=== PATIENT | male | born 1940 | race Caucasian/White ===

== ENCOUNTER 2022-02-02 21:31 | Emergency (ER) | payer MEDICARE, OTHER ==
[~2022-02-02] VITALS: Ht 170.2 cm; Wt 88.5 kg
--- NOTE | 2022-02-02 21:40 | NUR ---
SUSANNA FROM HOME C/O CALLING 911 DUE TO PT BEING LETHARGIC, PER EMS PT DRANK UNKOWN AMOUNT OF WHISKEY. BS 112 CREDIT REPORTER. TOLERATING R/A WELL WITH NO SOB. CONNECTED PT TO POX AND MONITOR. SAFETY MEASURES IN PLACE.
[2022-02-02] MEDS ORDERED: IV NS 0.9% 1,000 ML BAG IV ONE (22:00)
--- NOTE | 2022-02-02 22:31 | NUR ---
WORKFORCE PLANNER AT PT'S BEDSIDE
[2022-02-02] MEDS ORDERED: IV NS 0.9% 500 ML BAG IV ONE (23:00)
[2022-02-02 23:09] LABS: BASOPHILS % (AUTO) 0.3 % (0.0-2.0); EOSINOPHILS % (AUTO) 2.9 % (0.0-6.0); HEMATOCRIT 33 % (39-51); LYMPHOCYTES # (AUTO) 1.7 K/uL (0.8-4.8); LYMPHOCYTES % (AUTO) 26.8 % (20.0-44.0); MEAN CORPUSCULAR HGB CONC 34 g/dl (31.0-36.0); MEAN CORPUSCULAR VOLUME 97 fL (80-96); MONOCYTES # (AUTO) 0.6 K/uL (0.1-1.30); MONOCYTES % (AUTO) 9.5 % (2.0-12.0); NEUTROPHILS # (AUTO) 3.9 K/uL (1.8-8.9); NEUTROPHILS % (AUTO) 60.5 % (43.0-81.0); PLATELET COUNT (AUTO) 156 K/uL (150-450); RED BLOOD CELL COUNT(AUTO) 3.37 MIL/uL (4.5-6.0); WHITE BLOOD COUNT (AUTO) 6.5 K/uL (4.3-11.0)
[2022-02-02 23:14] LABS: CALCIUM, SERUM 7.5 mg/dL (8.5-10.1); CARBON DIOXIDE 23 mmol/L (21-32); CHLORIDE 106 mmol/L (98-107); CREATININE 2.3 mg/dL (0.6-1.3); GLUCOSE 113 mg/dL (74-106); POTASSIUM 4.1 mmol/L (3.5-5.1); SODIUM SERUM 138 mmol/L (136-145); UREA NITROGEN, BLOOD 27 mg/dL (7-18)
[2022-02-02 23:29] LABS: ALANINE AMINOTRANSFERASE 13 U/L (12-78); ALBUMIN 3.2 g/dL (3.4-5.0); ALCOHOL, BLOOD 121 mg/dL (0-0); ALKALINE PHOSPHATASE 62 U/L (46-116); ASPARTATE AMINOTRANSFERASE 17 U/L (15-37); BILIRUBIN,DIRECT 0.1 mg/dL (0.0-0.2); BILIRUBIN,TOTAL 0.2 mg/dL (0.2-1.0)
[2022-02-02 23:33] LABS: ACETAMINOPHEN 0 ug/ml (10-30)
--- NOTE | 2022-02-03 00:03 | NUR ---
SON (LORI) LEFT PHONE NUMBER TO CONTACT WHEN DISCHARGED. [phone].
[2022-02-03 00:37] VITALS: BP 102/60
--- NOTE | 2022-02-03 00:37 | NUR ---
Patient discharged to home in stable condition. Written and verbal after care instructions given. Patient verbalizes understanding of instruction.
== END 2022-02-03 00:37 | disposition home or self-care (01) ==
LOC: ER 21:33
DX: F10.129 Alcohol abuse with intoxication, unspecified (principal); I10 Essential (primary) hypertension; Y90.6 Blood alcohol level of 120-199 mg/100 ml
CPT/HCPCS: 36415; 80048; 80076; 80143; 80320; 85025; 96360; 99283; J7030; J7040; G0480

== ENCOUNTER 2022-03-28 07:16 | Inpatient (IN) | payer MEDICARE, OTHER ==
[~2022-03-28] VITALS: Ht 170.2 cm; Wt 77.1 kg
--- NOTE | 2022-03-28 07:49 | NUR ---
TECH AT BEDSIDE FOR EKG
[2022-03-28] MEDS ORDERED: IPRATROPIUM NEB FS 0.5 MG/2.5 ML AMPUL.NEB ONE (07:56)
[2022-03-28] MEDS ORDERED: ALBUTEROL FS 2.5 MG/3 ML VIAL.NEB ONE (07:56)
[2022-03-28] MEDS ORDERED: ALBUTEROL FS 2.5 MG/3 ML VIAL.NEB NEB ONE (08:00)
[2022-03-28] MEDS ORDERED: IPRATROPIUM NEB FS 0.5 MG/2.5 ML AMPUL.NEB NEB ONE (08:00)
[2022-03-28 08:14] LABS: BASOPHILS # (AUTO) 0.1 K/uL (0.0-0.2); BASOPHILS % (AUTO) 0.5 % (0.0-2.0); EOSINOPHILS % (AUTO) 2.3 % (0.0-6.0); HEMATOCRIT 35 % (39-51); HEMOGLOBIN 11.4 g/dL (13.5-17.5); LYMPHOCYTES # (AUTO) 2.5 K/uL (0.8-4.8); LYMPHOCYTES % (AUTO) 23.4 % (20.0-44.0); MEAN CORPUSCULAR HGB CONC 33 g/dl (31.0-36.0); MEAN CORPUSCULAR VOLUME 100 fL (80-96); MONOCYTES # (AUTO) 0.6 K/uL (0.1-1.30); MONOCYTES % (AUTO) 5.8 % (2.0-12.0); NEUTROPHILS # (AUTO) 7.2 K/uL (1.8-8.9); PLATELET COUNT (AUTO) 187 K/uL (150-450); RED BLOOD CELL COUNT(AUTO) 3.47 MIL/uL (4.5-6.0); WHITE BLOOD COUNT (AUTO) 10.6 K/uL (4.3-11.0)
--- NOTE | 2022-03-28 08:15 | NUR ---
ANASTACIA 102 FROM HOME FOR AMS. LWK LAST NIGHT AROUND 2200 APPEARS INTOXICATED WITH ALCOHOL ON TRIAGE. THE PATIENT IS ALERT AND ORIENTED X2. NOTED TO HAVE OXYGEN SATURATION LEVEL OF 88 % IN ROOM AIR. THE PATIENT IS PLACED ON OXYGEN AT 5L/MIN VIA SIMPLE MASK AND SATURATION IMPROVED TO 97%. WILL CONTINUE TO MONITOR THE PATIENT.
[2022-03-28 08:23] LABS: ALCOHOL, BLOOD 161 mg/dL (0-0)
[2022-03-28 08:29] LABS: ALANINE AMINOTRANSFERASE 27 U/L (12-78); ALBUMIN 3.4 g/dL (3.4-5.0); ALKALINE PHOSPHATASE 84 U/L (46-116); ASPARTATE AMINOTRANSFERASE 21 U/L (15-37); BILIRUBIN,DIRECT 0.1 mg/dL (0.0-0.2); BILIRUBIN,TOTAL 0.5 mg/dL (0.2-1.0); CALCIUM, SERUM 8.5 mg/dL (8.5-10.1); CARBON DIOXIDE 24 mmol/L (21-32); CHLORIDE 104 mmol/L (98-107); CREATININE 1.4 mg/dL (0.6-1.3); GLUCOSE 93 mg/dL (74-106); POTASSIUM 3.7 mmol/L (3.5-5.1); SODIUM SERUM 138 mmol/L (136-145); TOTAL PROTEIN, SERUM 7.5 g/dL (6.4-8.2); UREA NITROGEN, BLOOD 20 mg/dL (7-18)
--- NOTE | 2022-03-28 08:55 | NUR ---
SS Note: WALTER met with pt. and his at bedside. The pt. is a 81 year old male who was brought in by his , Fannie [phone] who he is from. WALTER met with pt. and his at bedside. The pt. is alert & oriented x 1 and possibly intoxicated with alcohol.The pt. is a poor historian. SW athered collateral information from . Per , the pt. has not been eating well and he drinks daily. SW provided addiction resources. Fannie stated that she brought th pt. in to the ED because the pt. was residing with his daughter in her home. However, per , the pt. has been requiring additional car and the daughter cannot care for him as she works. Per , the pt. went to "get a burger and got lost ont he way back home". SW asked if the pt. has Hx. of Dementia and she stated he has not been diagnosed yet. is stating that she would like possible cargiving for pt. SW aked about SNF placement and she stated that she can care for pt. as she lives with her son. WALTER educated her about IHSS and provided number for her to initiate services or get paid herself to care for pt. Fannie expressed understanding. WALTER provided her with senior resources including DME, MEALS ON WHEELS, LIFE ALERT etc. and Fannie accepted resources and thanked WALTER. WALTER will be available as needed. Senior resources and addiction reosurces provided include: ABUSE PREVENTION: ELDER ABUSE HOTLINE (18/03) ADULT PROTECTIVE SERVICES HOTLINE LONG-TERM CARE [facility] - sfv Region AREA ON AGING (HOTLINE) ADULT DAY HEALTH CARE CARE CENTERS: Private pay or Medi-corin funded adult day care [place] Adult Day Health Care [facility] , [facility] , [facility] Adult Care Center , [facility] Adult Day Health Care , [facility] Adult Day Health Care , [facility] Adult Daycare Center , Golden [facility] Generation Center , [place] Michelle [facility] Adult Center , [place] ALZHEIMER'S DISEASE/DEMENTIA: Alzheimer's Association Helpline [facility] Chapter www.alz.org/[facility] Department of Aging www.lacity.org Family Caregiver [place] www.caregiver.org [place] Caregiver Resources Center/Family Support www.losangelesscr.org CANCER RESOURCES: Citizen Of [place] Cancer Society www.cancer.org Cancer Support Community www.CancerSupportVvsb.org: CancerCare www.cancercare.org [facility] Cancer Support Center www.[facility].org [facility] HEALTH ASSOCIATIONS: AARP www.aarp.org ALS Association (ask for Jany) www.als.org Citizen Of [place] Diabetes Association www.diabetes.org [place] Heart Association www.heart.org [place] Lung Association www.lungusa.org Citizen [place] Parkinson Disease Association www.apdaparkinson.org Citizen [place] Ignacio , www.redcross.org Arthritis Foundation www.arthritis.org Crohn's & Colitis Foundation of Citizen Of [place] www.ccfa.org/chapters/darian National Multiple Sclerosis Society www.nationalmssociety.org Myasthenia Gravis Foundation www.myasthenia-ca.org National Stroke Association www.stroke.org CONSERVATORSHIP & GUARDIANSHIP: AARP Joselin [place] Legal Services Center for Health Care Rights Eldercare Information and Referral Merchandise Adjustment Clerk [facility]: [facility] Bar Referral Service [facility] Legal Services Office of the Public Guardian [place] EYESIGHT DISORDER RESOURCES: Citizen Of [place] Macular Degeneration Foundation [facility] www.[facility].org GRIEF AND BEREAVEMENT RESOURCES: The [place] , [facility] THE HOPE Connection , [facility] Bereavement Center , [place] HEARING DISORDER RESOURCES: [place] Telephone Access Program Deaf and Disabled Telecommunications Program www.ddtp.[facility].ca.gov HearRx Hearing Centers ([place]) Better Hearing Systems , [place] GLAD ([facility] Agency on Deafness) V/ TTY; Clinical Editor , [facility] Hearing [facility] -low income hearing aid assistance www.hca [facility] hospitalfoundation.org [place] [facility] , Torin HELP AT HOME - CAREGIVER SUPPORT: In Home Support Services (Must have Medi-Corin to be eligible) *Ask for a list of agencies that provide services to assist with care in the home. Local Senior Centers also have listings of care providers. HOME SAFETY MODIFICATIONS AND EQUIPMENT: Senior centers have additional referrals. [place] Housing and Community Investment Dept. Handyworker Program (low income) or Visit http://hcidla.[facility].org/tig-ijiipe-wt for more information National Seating and Mobility and/or ; Forever Active www.foreverAnimal Kingdommed.1calendar Stay Home Safe www.Stayhomesafe.com LIFE ALERT RESPONSE SYSTEM: Medifacts International Services 897-560-5961 www. Bellstrike Life Alert 766-206-0069 www.KIWATCH Life Station 961-687-9720 www.Kastation.1calendar Safe Return 006-326-5038 www.alz.or/safereturn Cell Phones for Seniors www.Werdsmith MEALS AND FOOD PROGRAMS: [place] Meals on Wheels [phone] [place] Meals on Wheels [phone] [facility] [phone] [place] to the Homebound [phone] Scissors to the Homebound [phone] [facility] to the Homebound [phone] [facility] to the Homebound [phone] [facility] Center[facility] [phone] [facility] [phone] ONE Generation [phone] [facility] [phone] [facility] [phone] Meals on Wheels [phone] For all ages: $6.85/ meal w side. Delivered M-F from 10 am-1pm. Application and payment is done over the phone. Frozen meals available for weekends. Emergency Food Coalition [phone] [facility] Biomedical Repair Technician [phone] [facility] [phone] Community Health Systems- Brown bag lunches [phone] [facility] [phone] MEAL/GROCERY DELIVERY PROGRAMS: Ashley's Senior Gourmet Meals [phone]- [facility] [phone]- [facility] Magic Kitchen [phone] Mom's Meals [phone] (ask Martines for Discount Select grocery stores may provide delivery. MEDICAL INSURANCE SUPPORT SERVICES: Center for Health Care Rights [phone] Health Insurance Counseling/Advocacy Programs (HICAP)-Must have Medicare. Offers counseling for Medi-Corin eligibility [phone] [facility] Public Biomedical Repair Technician [phone] www.[facility].ca.gov Medicare [phone] www.socialsecurity.org Social Security [phone] SENIOR ACTIVITY PROGRAMS: *Contact a local senior center, adult school, recreation facility or community [facility] for education, fitness, recreation, and social programs. Aquatic Therapy and Adapted Exercise programs through [facility] [phone] Encore at [facility] [phone] www.[facility]/encore U- Senior Friends [phone] [place] Senior Programs [phone] www.oasisnet.org Suddenly 65 www.SEVENROOMS.1calendar SENIOR CENTERS: [facility] [phone] [facility] [phone] [facility] [phone] [facility] [phone] [facility] [phone] [facility] [phone] [facility] [phone] [facility] [phone] One Generation, [facility] [phone] [facility] [phone] [facility] [phone] [facility] [phone] [facility] [phone] TRANSPORTATION: Local [facility] Centers may have applications for transportation programs and additional resources. ACCESS Services [phone] Transportation for seniors and disabled persons 7 days a week requiring 254 hr. advance reservation. Must apply and register for program razia eligible. CITY RIDE 404-661-3325 or [phone] Transportation for seniors and persons with ADA card/metro disabled card in the [facility]. M-F only. Must register for services. ONE GENERATION [phone] Serves 65 years + in conjunction with Loan [employer]icing [employer] ride program. Must be registered with both programs. A to B Transport [phone] Provides wheelchair/gurney van service. Adult Medical Transport [phone] Accepts [facility] with prior authorization. Care Van [phone] Provides wheelchair Transport. [facility] Wide Transportation [phone] Provides gurney service Gentle Care [phone] Gurney Transport. All Town Transportation [phone] wheelchair & gurney transport [facility] Transportation [phone] wheelchair & gurney transport [place] Non-Emergency Transport [phone] wheelchair & gurney transport [facility] Living [place] [phone] Short Term Transportation primarily for adults with disabilities on social security income. Nominal fee may apply and a reservation is required. City Cab [phone] or [phone] Greetz [phone] [place] [address] Referral Services -[phone] For additional programs & services VETERANS RESOURCES: Submissions for Aid and Attendance should be done directly to [facility] VA office locatd at : [address] [phone] National Caregiver Support Line [phone] [facility] Field Office [phone] [place] Department of Santa Affairs [phone] Pension Information [phone] ADDICTION RESOURCES For Drugs and Alcohol [facility] sober living Referrals For Rehabilitation once sober Address:[address] [place] [address] [facility] Rehabilitation Program [address] [place] [address] Detox/residential [facility] Substance Abuse Helpline ([facility]) Outpatient, residential treatment, recovery support for youth/adults Action Family Counseling www.actionfamilycounsArtisan Pharma.1calendar [facility] Teen programs for drug/alcohol education and support Juan José Harper [employer]. Program for adults, sliding scale provides support and education citizenmade www.Optima Neuroscience.org [place]; Detox/residential treatment programs; transition to sober living Cri-Help www.cri-help.org [place]; Outpatient and residential treatment programs; transition to sober living [facility] TEL: [phone] I-ADARP Inter Agency Drug Abuse Recovery Tony Martinez; Outpatient education and supportive programs for teens and adults [place] [facility] www.oasiswomensrecmercy hospitaly.org [place]; Residential treatment and work program for females only Neal [place] www.[facility].Storm Exchange [place]: Outpatient/residential treatment program for teens and young adults [facility] www.[facility].org Tarza Detox, inpatient, outpatient for adults and youth [facility], [facility]. Clark; Outpatient programs and referrals to community residential programs. Alcoholics Anonymous -SFV information and meeting and scheduleswww.aa-intergroup.org Yehuda https://al-anon.org/ [place] support groups for family of alcoholics. Marijuana Anonymous www.madistrict6.org -SFV listing of meetings Narcotics Anonymous www.na.org SOBER LIVING RESOURCES The Sober Living Network www.soberhousing.net A non-profit agency that provides resources to recovery and sober living homes throughout [place], [place], [facility] Men's Sober Living Homes: A Work in ProgressMaximino [facility] Payton Harper Recovery Advocates, [place] [facility] Hospital[facility] Women's Sober Living Homes: [facility] [phone] My [place], [place] Leon [facility] Brussels[facility] Coed Sober Living Homes: [facility] [place] Counseling--Outpatient [facility] [address] [place] Pablo brittanie [facility] [place] [address] (Specializes in in-depth psychotherapy for emotional distress: anxiety, depression, interpersonal conflicts, life transitions, childhood abuse) Community [facility]ance [facility] [address] [place] [address] (Assist with solving problem marital difficulties, separation & divorce, aging parents, & grief, chronic & terminal illness) Family [facility]ing Center [address] [place] [address] (Deal with loss & grief, anxiety, marital difficulties) Homebound/Mental Health Services [address] [facility], [address] [place] [address] (Provide in-home mental services to people who are incapable of leaving their homes) Organization for Needs of the Elderly Senior Service/Resource Center [address] [place] [address] [facility] [address] [place] [address] Mental Health Services Mary Newman [address] [place] [address] Services: Outpatient therapy for children, teens, young adults, adults, older adults, and families; Psychiatric services, medication support Psychiatric Outpatient Services [place] [facility] Partial Hospitalization and Intensive Outpatient Program (Managed Care and [place] Only)[address] [facility]. [facility] [phone] [facility] Partial Hospitalization and Outpatient [id number] [facility]. [address] [place], [place] [phone] [facility] Health [place] [id number] [address] [place] Michelle[place], [place] [phone] [facility] Tony Martinez Partial Hospitalization and Outpatient [id number] [place] [phone] Crisis and Hotline Telephone Numbers 24-Hour service unless stated [place] Crisis Hotlines: [facility] Mental Health/Crisis Line........934.774.3459 Suicide Prevention Center (24 Hours).......756.877.2196 Suicide Prevention Crisis Center.......[phone] (24 Hours) Assaults Against Women Hotline.........205.393.2494 (24 Hours -- [facility]) Women and Children Crisis Prison...........[phone] (24 Hours) Child Abuse Hotline............297.191.7915 [facility] of Childrens Services Rape Treatment Center (24 Hours)..........[phone] Alcoholics Anonymous (24 Hours)..........[phone] Cocaine Anonymous (24 Hours)............[phone] Narcotics Anonymous (24 Hours)..........[phone] [address] [facility] [address], [place] [address]
[2022-03-28 09:03] LABS: SERUM AMMONIA 19 umol/L (11-32)
--- NOTE | 2022-03-28 09:30 | NUR ---
THE PATIENT IS OXYGEN AT 2L/MIN VIA NASAL CANNULA. SATURATIO LEVEL IS AT 97%.
[2022-03-28] MEDS ORDERED: ICOS1CAP PO (09:37)
[2022-03-28] MEDS ORDERED: ASPI-1420 PO (09:37)
[2022-03-28] MEDS ORDERED: ESOM40CA52 PO (09:37)
[2022-03-28] MEDS ORDERED: ATEN25TA PO (09:37)
[2022-03-28] MEDS ORDERED: FERR325T24 PO (09:37)
[2022-03-28] MEDS ORDERED: CALC500T52 PO (09:37)
[2022-03-28] MEDS ORDERED: FOLI0.4T6 PO (09:37)
[2022-03-28] MEDS ORDERED: THIA100T88 PO (09:37)
[2022-03-28] MEDS ORDERED: TEMA15CA PO (09:37)
[2022-03-28] MEDS ORDERED: PYRI-7 PO (09:37)
[2022-03-28] MEDS ORDERED: MEGE40TA5 PO (09:37)
[2022-03-28] MEDS ORDERED: LIPA1CAP36 PO (09:37)
[2022-03-28] MEDS ORDERED: GABA-532 PO (09:37)
[2022-03-28] MEDS ORDERED: ROSU20TA32 PO (09:37)
[2022-03-28] MEDS ORDERED: LORA-258 PO (09:37)
[2022-03-28] MEDS ORDERED: SERT100T12 PO (09:37)
--- NOTE | 2022-03-28 09:40 | NUR ---
DR ABDUL AT BEDSIDE W/ PT AND .
--- NOTE | 2022-03-28 09:45 | NUR ---
COVID SWAB COLLECTED AND SENT TO LAB.
[2022-03-28 10:12] VITALS: BP 152/97
--- NOTE | 2022-03-28 11:16 | NUR ---
[facility] CALLED DIRECTOR OF FRONT OFFICE PAGED.
--- NOTE | 2022-03-28 12:08 | NUR ---
GOT BED 310-1 PPU
--- NOTE | 2022-03-28 12:23 | NUR ---
REPORT GIVEN TO NURSE SANCHEZ FOR FLORA
--- NOTE | 2022-03-28 12:48 | NUR ---
THE PATIENT IS TAKEN TO ROOM 310-1 IN STABLE CONDITION AND PER POLICY.
[2022-03-28] MEDS ORDERED: ACETAMINOPHEN 325 MG TABLET PO PRN (14:00)
[2022-03-28] MEDS ORDERED: CHLORDIAZEPOXIDE HCL 25 MG CAPSULE PO SCH (14:00)
[2022-03-28] MEDS ORDERED: ONDANSETRON HCL/PF 4 MG/2 ML VIAL IVP PRN (14:00)
[2022-03-28] MEDS ORDERED: Z GUARD REMEDY 4 OZ OINT TP PRN (14:00)
[2022-03-28] MEDS ORDERED: MAG HYDROX/AL HYDROX/SIMETH 30 ML UDC PO PRN (14:00)
[2022-03-28] MEDS ORDERED: LORAZEPAM INJ 2 MG/ML VIAL IV PRN (14:00)
[2022-03-28] MEDS ORDERED: IV 1/2NS 1000 ML 1,000 ML IV PRN (14:00)
[2022-03-28] MEDS ORDERED: THIAMINE HCL 100 MG TABLET PO SCH (14:00)
[2022-03-28] MEDS ORDERED: CALCIUM CARBONATE (1250) 500 MG TABLET PO SCH (17:00)
[2022-03-28] MEDS ORDERED: MEGESTROL ACETATE 40 MG TABLET PO SCH (17:00)
[2022-03-28] MEDS ORDERED: Medication Not On Formulary EA (Icosapent Ethyl (Vascepa) 1 GM) PO SCH (17:00)
[2022-03-28] MEDS ORDERED: LIPASE/PROTEASE/AMYLASE 1 EACH CAPSULE.DR PO SCH (18:00)
[2022-03-28] MEDS ORDERED: HEPARIN SODIUM, PORCINE 5000 UNITS/1 ML VIAL SQ SCH (21:00)
[2022-03-29] MEDS ORDERED: PANTOPRAZOLE 40 MG TABLET.DR PO SCH (07:30)
[2022-03-29] MEDS ORDERED: ATENOLOL 25 MG TABLET PO SCH (09:00)
[2022-03-29] MEDS ORDERED: ASPIRIN EC 81 MG TABLET.DR PO SCH (09:00)
[2022-03-29] MEDS ORDERED: PYRIDOXINE HCL 50 MG TABLET PO SCH (09:00)
[2022-03-29] MEDS ORDERED: FERROUS SULFATE (325 MG) 325 MG/TAB TABLET PO SCH (09:00)
[2022-03-29] MEDS ORDERED: FOLIC ACID 1 MG TABLET PO SCH (09:00)
[2022-03-29] MEDS ORDERED: ATORVASTATIN 40 MG TABLET PO SCH (09:00)
[2022-03-29] MEDS ORDERED: SERTRALINE HCL 50 MG TABLET PO SCH (09:00)
== END 2022-03-28 15:15 | disposition left against medical advice (07) | DRG 682 ==
LOC: ER 07:27 → TELE 12:30
PROVIDERS: ADMIT Nurse Practitioner Family; ATTEND Nurse Practitioner Family
DX: N17.0 Acute kidney failure with tubular necrosis (principal); G92.8 Other toxic encephalopathy; J96.01 Acute respiratory failure with hypoxia; F10.239 Alcohol dependence with withdrawal, unspecified; I12.9 Hypertensive chronic kidney disease with stage 1 through stage 4 chronic kidney disease, or unspecified chronic kidney disease; N18.9 Chronic kidney disease, unspecified; Y90.6 Blood alcohol level of 120-199 mg/100 ml; D53.9 Nutritional anemia, unspecified; Z20.822 Contact with and (suspected) exposure to COVID-19; F10.229 Alcohol dependence with intoxication, unspecified
CPT/HCPCS: 36415; 70450-TC; 71045-TC; 80048-TC; 80076-TC; 82140-TC; 84484-TC; 85025-TC; C9803; G0378; G0480

== ENCOUNTER 2023-08-26 12:39 | Inpatient (IN) | payer MEDICARE, OTHER ==
[~2023-08-26] VITALS: Ht 170.2 cm; Wt 70.8 kg
[~2023-08-26 12:39] MED LIST: ASPI-1420 PO; ATEN25TA PO; CALC500T52 PO; ESOM40CA52 PO; FERR325T24 PO; FOLI0.4T6 PO; GABA-532 PO; ICOS1CAP PO; LIPA1CAP36 PO; LORA-258 PO; MEGE40TA5 PO; PYRI-7 PO; ROSU20TA32 PO; SERT100T12 PO; TEMA15CA PO; THIA100T88 PO
[2023-08-26 14:29] LABS: BASOPHILS % (AUTO) 0.1 % (0.0-2.0); EOSINOPHILS # (AUTO) 0.1 K/uL (0.0-0.7); EOSINOPHILS % (AUTO) 0.9 % (0.0-6.0); HEMATOCRIT 29 % (39-51); HEMOGLOBIN 9.7 g/dL (13.5-17.5); LYMPHOCYTES # (AUTO) 0.8 K/uL (0.8-4.8); LYMPHOCYTES % (AUTO) 11.7 % (20.0-44.0); MEAN CORPUSCULAR HEMOGLOBIN 34 PG (26.0-33.0); MEAN CORPUSCULAR HGB CONC 34 g/dl (31.0-36.0); MEAN CORPUSCULAR VOLUME 100 fL (80-96); MONOCYTES # (AUTO) 0.3 K/uL (0.1-1.30); NEUTROPHILS # (AUTO) 5.9 K/uL (1.8-8.9); NEUTROPHILS % (AUTO) 83.3 % (43.0-81.0); PLATELET COUNT (AUTO) 118 K/uL (150-450); RED BLOOD CELL COUNT(AUTO) 2.85 MIL/uL (4.5-6.0); RED CELL DISTRIBUTION WIDTH 14.1 % (11.5-15.0); WHITE BLOOD COUNT (AUTO) 7.1 K/uL (4.3-11.0)
[2023-08-26 14:38] LABS: CALCIUM, SERUM 8.7 mg/dL (8.5-10.1); CARBON DIOXIDE 26 mmol/L (21-32); CHLORIDE 96 mmol/L (98-107); CREATININE 1.1 mg/dL (0.6-1.3); GLUCOSE 89 mg/dL (74-106); POTASSIUM 3.9 mmol/L (3.5-5.1); SODIUM SERUM 132 mmol/L (136-145); UREA NITROGEN, BLOOD 24 mg/dL (7-18)
[2023-08-26 14:44] LABS: ALANINE AMINOTRANSFERASE 40 U/L (12-78); ALBUMIN 2.9 g/dL (3.4-5.0); ALKALINE PHOSPHATASE 81 U/L (46-116); ASPARTATE AMINOTRANSFERASE 42 U/L (15-37); BILIRUBIN,DIRECT 0.3 mg/dL (0.0-0.2); TOTAL PROTEIN, SERUM 6.5 g/dL (6.4-8.2)
[2023-08-26] MEDS ORDERED: IV NS 0.9% 1,000 ML BAG IV ONE (15:30)
[2023-08-26 15:33] LABS: ALCOHOL, BLOOD < 3 mg/dL (0-10); MAGNESIUM 1.9 mg/dL (1.8-2.4)
[2023-08-26] MEDS ORDERED: IV NS 0.9% 250 ML IV ONE (15:50)
[2023-08-26] MEDS ORDERED: CT SWABBABLE VALVE TRANS SET 1 EA INFUS.SET MC ONE (15:50)
[2023-08-26] MEDS ORDERED: IOHEXOL-300 100 ML VIAL IV ONE (15:50)
[2023-08-26] MEDS ORDERED: LORAZEPAM 1 MG TABLET PO ONE (17:00)
[2023-08-26] MEDS ORDERED: MORPHINE SULFATE INJ 2 MG/ML DISP.SYRIN IV ONE (17:00)
[2023-08-26] MEDS ORDERED: LORAZEPAM 1 MG TABLET ONE (17:03)
[2023-08-26] MEDS ORDERED: MORPHINE SULFATE INJ 2 MG/ML DISP.SYRIN ONE (17:03)
[2023-08-26] MEDS ORDERED: TICA60TA PO (17:06)
[2023-08-26] MEDS ORDERED: ALPR2TAB7 PO (17:06)
[2023-08-26] MEDS ORDERED: MEMA5TAB42 PO (17:06)
[2023-08-26] MEDS ORDERED: QUET25TA PO (17:06)
[2023-08-26] MEDS ORDERED: DONE10TA44 PO (17:06)
[2023-08-26] MEDS ORDERED: AMLO-212 PO (17:06)
[2023-08-26 17:24] LABS: APPEARANCE,URINE CLEAR (CLEAR); BILIRUBIN,URINE 1+ (NEGATIVE); BLOOD, URINE TRACE-INTA Ery/uL (NEGATIVE); COLOR,URINE YELLOW (YELLOW); KETONES,URINE TRACE mg/dL (NEGATIVE); LEUKOCYTE ESTERASE ,URINE NEGATIVE (NEGATIVE); NITRITE, URINE NEGATIVE (NEGATIVE); PROTEIN,URINE TRACE mg/dl (NEGATIVE); UGLUCOSE NEGATIVE (NEGATIVE)
[2023-08-26] MEDS ORDERED: MAG HYDROX/AL HYDROX/SIMETH 30 ML UDC PO PRN (17:30)
[2023-08-26] MEDS ORDERED: ACETAMINOPHEN 325 MG TABLET PO PRN (17:30)
[2023-08-26] MEDS ORDERED: Thiamine 100 MG in IV D5W 50 ML IV SCH (17:30)
[2023-08-26] MEDS ORDERED: ONDANSETRON HCL/PF 4 MG/2 ML VIAL IVP PRN (17:30)
[2023-08-26] MEDS ORDERED: Z GUARD REMEDY 4 OZ OINT TP PRN (17:30)
[2023-08-26] MEDS ORDERED: Folic acid 1 MG in IV D5W 50 ML IV SCH (17:30)
[2023-08-26] MEDS ORDERED: LORAZEPAM INJ 2 MG/ML VIAL IV ONE (17:30)
[2023-08-26] MEDS ORDERED: MAGNESIUM HYDROXIDE 30 ML UDC PO PRN (17:30)
[2023-08-26] MEDS ORDERED: LORAZEPAM INJ 2 MG/ML VIAL ONE (17:31)
[2023-08-26 18:19] LABS: ADD URINE CULTURE NO; BACTERIA,URINE None seen /HPF (None Seen); SQUAMOUS EPITHELIAL CELL,UR 0-2 /HPF (None Seen); WBC,URINE 0-2 /HPF (0-3)
[2023-08-26 21:00] VITALS: BP 143/78; TEMP 97.8; O2SAT 98
[2023-08-26] MEDS: QUETIAPINE FUMARATE 25 MG TABLET PO SCH (22:30)
[2023-08-26] MEDS: IV 1/2NS 1000 ML 1,000 ML IV PRN (22:52)
[2023-08-27] VITALS: BP 136/57; TEMP 98.6; O2SAT 94
[2023-08-27] MEDS ORDERED: Thiamine 100 MG/ML VIAL ONE (00:47)
[2023-08-27 04:00] VITALS: BP 148/72; TEMP 97.8; O2SAT 96
[2023-08-27 06:29] LABS: BASOPHILS % (AUTO) 0.2 % (0.0-2.0); EOSINOPHILS % (AUTO) 0.5 % (0.0-6.0); HEMATOCRIT 29 % (39-51); LYMPHOCYTES # (AUTO) 1.2 K/uL (0.8-4.8); LYMPHOCYTES % (AUTO) 14.8 % (20.0-44.0); MEAN CORPUSCULAR HEMOGLOBIN 34 PG (26.0-33.0); MEAN CORPUSCULAR HGB CONC 34 g/dl (31.0-36.0); MEAN CORPUSCULAR VOLUME 100 fL (80-96); MONOCYTES # (AUTO) 0.4 K/uL (0.1-1.30); MONOCYTES % (AUTO) 5.1 % (2.0-12.0); NEUTROPHILS # (AUTO) 6.4 K/uL (1.8-8.9); NEUTROPHILS % (AUTO) 79.4 % (43.0-81.0); PLATELET COUNT (AUTO) 131 K/uL (150-450); RED BLOOD CELL COUNT(AUTO) 2.92 MIL/uL (4.5-6.0); RED CELL DISTRIBUTION WIDTH 13.9 % (11.5-15.0); WHITE BLOOD COUNT (AUTO) 8.1 K/uL (4.3-11.0)
[2023-08-27 06:49] LABS: ALANINE AMINOTRANSFERASE 37 U/L (12-78); ALKALINE PHOSPHATASE 82 U/L (46-116); ASPARTATE AMINOTRANSFERASE 34 U/L (15-37); BILIRUBIN,TOTAL 1.1 mg/dL (0.2-1.0); CALCIUM, SERUM 8.6 mg/dL (8.5-10.1); CARBON DIOXIDE 20 mmol/L (21-32); CHLORIDE 98 mmol/L (98-107); CREATININE 0.9 mg/dL (0.6-1.3); GLUCOSE 78 mg/dL (74-106); MAGNESIUM 1.8 mg/dL (1.8-2.4); PHOSPHORUS 1.9 mg/dL (2.5-4.9); POTASSIUM 3.6 mmol/L (3.5-5.1); SODIUM SERUM 133 mmol/L (136-145); TOTAL PROTEIN, SERUM 6.7 g/dL (6.4-8.2); UREA NITROGEN, BLOOD 17 mg/dL (7-18)
[2023-08-27 08:00] VITALS: BP 145/99; TEMP 98.7; O2SAT 98
[2023-08-27] MEDS: ATORVASTATIN 40 MG TABLET PO SCH (08:12)
[2023-08-27] MEDS: GABAPENTIN 100 MG CAPSULE PO SCH (08:12)
[2023-08-27] MEDS: SERTRALINE HCL 50 MG TABLET PO SCH (08:12)
[2023-08-27] MEDS: THIAMINE HCL 100 MG TABLET PO SCH (08:12)
[2023-08-27] MEDS: DONEPEZIL 5 MG TABLET PO SCH (08:13)
[2023-08-27] MEDS: MEMANTINE HCL 5 MG TABLET PO SCH ×2 (08:13→17:10)
[2023-08-27] MEDS: AMLODIPINE BESYLATE 5 MG TABLET PO SCH (08:13)
[2023-08-27] MEDS: FOLIC ACID 1 MG TABLET PO SCH (08:13)
[2023-08-27] MEDS: ATENOLOL 25 MG TABLET PO SCH (08:14)
[2023-08-27] MEDS: ALPRAZOLAM 1 MG TABLET PO PRN (08:19)
[2023-08-27 12:00] VITALS: BP 121/68; TEMP 98.9; O2SAT 99
[2023-08-27] MEDS: IV 1/2NS 1000 ML 1,000 ML IV PRN (13:40)
[2023-08-27 16:00] VITALS: BP 132/73; TEMP 98.6; O2SAT 100
[2023-08-27] MEDS ORDERED: K PHOS NEUTRAL 250 MG TABLET PO ONE (16:30)
[2023-08-27] MEDS: TICAGRELOR 60 MG PO SCH (17:10)
[2023-08-27 20:00] VITALS: BP 131/70; TEMP 98.5; O2SAT 99
[2023-08-27] MEDS: QUETIAPINE FUMARATE 25 MG TABLET PO SCH (21:05)
[2023-08-27 22:34] LABS: THYROID STIMULATING HORMONE 0.869 uIU/mL (0.358-3.74)
[2023-08-28] MEDS: ALPRAZOLAM 1 MG TABLET PO PRN ×2 (03:46→16:15)
[2023-08-28 04:00] VITALS: BP 148/72; TEMP 98.1; O2SAT 99
[2023-08-28 07:15] LABS: BASOPHILS % (AUTO) 0.2 % (0.0-2.0); EOSINOPHILS % (AUTO) 0.5 % (0.0-6.0); HEMATOCRIT 31 % (39-51); HEMOGLOBIN 10.2 g/dL (13.5-17.5); LYMPHOCYTES % (AUTO) 14.2 % (20.0-44.0); MEAN CORPUSCULAR HEMOGLOBIN 34 PG (26.0-33.0); MEAN CORPUSCULAR HGB CONC 33 g/dl (31.0-36.0); MEAN CORPUSCULAR VOLUME 101 fL (80-96); MONOCYTES # (AUTO) 0.4 K/uL (0.1-1.30); MONOCYTES % (AUTO) 5.2 % (2.0-12.0); NEUTROPHILS # (AUTO) 5.6 K/uL (1.8-8.9); NEUTROPHILS % (AUTO) 79.9 % (43.0-81.0); PLATELET COUNT (AUTO) 140 K/uL (150-450); RED BLOOD CELL COUNT(AUTO) 3.04 MIL/uL (4.5-6.0); RED CELL DISTRIBUTION WIDTH 14.2 % (11.5-15.0); WHITE BLOOD COUNT (AUTO) 7.1 K/uL (4.3-11.0)
[2023-08-28 07:42] LABS: ALBUMIN 2.8 g/dL (3.4-5.0); CALCIUM, SERUM 8.5 mg/dL (8.5-10.1); CREATININE 0.8 mg/dL (0.6-1.3); PHOSPHORUS 3.3 mg/dL (2.5-4.9); TOTAL PROTEIN, SERUM 6.6 g/dL (6.4-8.2)
[2023-08-28] MEDS: ATORVASTATIN 40 MG TABLET PO SCH (09:22)
[2023-08-28] MEDS: ATENOLOL 25 MG TABLET PO SCH (09:24)
[2023-08-28] MEDS: SERTRALINE HCL 50 MG TABLET PO SCH (09:24)
[2023-08-28] MEDS: DONEPEZIL 5 MG TABLET PO SCH (09:25)
[2023-08-28] MEDS: THIAMINE HCL 100 MG TABLET PO SCH (09:25)
[2023-08-28] MEDS: GABAPENTIN 100 MG CAPSULE PO SCH (09:25)
[2023-08-28] MEDS: FOLIC ACID 1 MG TABLET PO SCH (09:25)
[2023-08-28] MEDS: MEMANTINE HCL 5 MG TABLET PO SCH ×2 (09:25→16:14)
[2023-08-28] MEDS: AMLODIPINE BESYLATE 5 MG TABLET PO SCH (09:25)
[2023-08-28] MEDS: TICAGRELOR 60 MG PO SCH ×2 (09:58→17:43)
[2023-08-28] MEDS ORDERED: POTASSIUM CHLORIDE 20 MEQ POWDER PACKET PO ONE (10:00)
[2023-08-28] MEDS ORDERED: POTASSIUM CHLORIDE 20 MEQ TAB.PRT.SR PO ONE (10:30)
[2023-08-28] MEDS: CHLORDIAZEPOXIDE HCL 25 MG CAPSULE PO SCH ×2 (12:11→17:25)
[2023-08-28] MEDS: LOPERAMIDE HCL (2 MG CAP) 2 MG CAPSULE PO PRN ×2 (12:23→18:23)
[2023-08-28] MEDS: IV 1/2NS 1000 ML 1,000 ML IV PRN (14:43)
[2023-08-28 15:27] VITALS: BP 140/76; TEMP 98
[2023-08-28] MEDS: HYDROCODONE/APAP 5/325MG TABLET PO PRN (15:36)
[2023-08-28 20:00] VITALS: BP 129/76; TEMP 98.4; O2SAT 100
[2023-08-28] MEDS: QUETIAPINE FUMARATE 25 MG TABLET PO SCH (22:35)
[2023-08-29] VITALS: BP 133/79; TEMP 98.4; O2SAT 99
[2023-08-29] MEDS: CHLORDIAZEPOXIDE HCL 25 MG CAPSULE PO SCH ×4 (00:38→17:01)
[2023-08-29] MEDS: LOPERAMIDE HCL (2 MG CAP) 2 MG CAPSULE PO PRN ×3 (00:39→22:09)
[2023-08-29 04:00] VITALS: BP 136/90; TEMP 98.3; O2SAT 99
[2023-08-29] MEDS: IV 1/2NS 1000 ML 1,000 ML IV PRN (04:32)
[2023-08-29 07:43] LABS: BASOPHILS % (AUTO) 0.3 % (0.0-2.0); EOSINOPHILS # (AUTO) 0.1 K/uL (0.0-0.7); EOSINOPHILS % (AUTO) 0.6 % (0.0-6.0); HEMATOCRIT 34 % (39-51); HEMOGLOBIN 11.4 g/dL (13.5-17.5); MEAN CORPUSCULAR HEMOGLOBIN 33 PG (26.0-33.0); MEAN CORPUSCULAR HGB CONC 34 g/dl (31.0-36.0); MEAN CORPUSCULAR VOLUME 100 fL (80-96); MONOCYTES # (AUTO) 0.6 K/uL (0.1-1.30); MONOCYTES % (AUTO) 6.9 % (2.0-12.0); NEUTROPHILS # (AUTO) 6.6 K/uL (1.8-8.9); NEUTROPHILS % (AUTO) 80.2 % (43.0-81.0); PLATELET COUNT (AUTO) 184 K/uL (150-450); RED BLOOD CELL COUNT(AUTO) 3.41 MIL/uL (4.5-6.0); RED CELL DISTRIBUTION WIDTH 14.4 % (11.5-15.0); WHITE BLOOD COUNT (AUTO) 8.2 K/uL (4.3-11.0)
[2023-08-29 08:00] VITALS: BP 129/92; TEMP 97.7; O2SAT 99
[2023-08-29 08:07] LABS: ALBUMIN 3.1 g/dL (3.4-5.0); BILIRUBIN,TOTAL 0.8 mg/dL (0.2-1.0); CREATININE 0.9 mg/dL (0.6-1.3); MAGNESIUM 1.8 mg/dL (1.8-2.4); PHOSPHORUS 2.9 mg/dL (2.5-4.9); POTASSIUM 2.9 mmol/L (3.5-5.1); TOTAL PROTEIN, SERUM 7.3 g/dL (6.4-8.2)
[2023-08-29 08:09] LABS: FOLIC ACID 13.1 ng/mL (>3.0)
[2023-08-29] MEDS: SERTRALINE HCL 50 MG TABLET PO SCH (08:20)
[2023-08-29] MEDS: THIAMINE HCL 100 MG TABLET PO SCH (08:20)
[2023-08-29] MEDS: MEMANTINE HCL 5 MG TABLET PO SCH ×2 (08:20→17:01)
[2023-08-29] MEDS: DONEPEZIL 5 MG TABLET PO SCH (08:20)
[2023-08-29] MEDS: GABAPENTIN 100 MG CAPSULE PO SCH (08:20)
[2023-08-29] MEDS: FOLIC ACID 1 MG TABLET PO SCH (08:20)
[2023-08-29] MEDS: ATENOLOL 25 MG TABLET PO SCH (08:21)
[2023-08-29] MEDS: AMLODIPINE BESYLATE 5 MG TABLET PO SCH (08:21)
[2023-08-29] MEDS: ATORVASTATIN 40 MG TABLET PO SCH (08:26)
[2023-08-29] MEDS: TICAGRELOR 60 MG PO SCH ×2 (08:26→17:01)
[2023-08-29] MEDS: HYDROCODONE/APAP 5/325MG TABLET PO PRN (09:35)
[2023-08-29] MEDS: POTASSIUM CHLORIDE 20 MEQ TAB.PRT.SR PO SCH ×3 (11:53→14:11)
[2023-08-29 12:00] VITALS: BP 133/89; TEMP 97.9; O2SAT 97
[2023-08-29 20:00] VITALS: BP 126/55; TEMP 98.8; O2SAT 98
[2023-08-29] MEDS: QUETIAPINE FUMARATE 25 MG TABLET PO SCH (22:09)
[2023-08-30] VITALS: BP 116/74; TEMP 98.4; O2SAT 98
[2023-08-30] MEDS: CHLORDIAZEPOXIDE HCL 25 MG CAPSULE PO SCH ×4 (00:23→17:08)
[2023-08-30 04:00] VITALS: BP 125/75; TEMP 98.1; O2SAT 99
[2023-08-30 08:00] VITALS: BP 128/82; TEMP 97.8; O2SAT 98
[2023-08-30] MEDS: AMLODIPINE BESYLATE 5 MG TABLET PO SCH (09:28)
[2023-08-30] MEDS: ATENOLOL 25 MG TABLET PO SCH (09:29)
[2023-08-30] MEDS: GABAPENTIN 100 MG CAPSULE PO SCH (09:30)
[2023-08-30] MEDS: SERTRALINE HCL 50 MG TABLET PO SCH (09:30)
[2023-08-30] MEDS: ATORVASTATIN 40 MG TABLET PO SCH (09:30)
[2023-08-30] MEDS: FOLIC ACID 1 MG TABLET PO SCH (09:30)
[2023-08-30] MEDS: THIAMINE HCL 100 MG TABLET PO SCH (09:30)
[2023-08-30] MEDS: MEMANTINE HCL 5 MG TABLET PO SCH ×2 (09:31→16:46)
[2023-08-30] MEDS: TICAGRELOR 60 MG PO SCH ×2 (09:31→16:46)
[2023-08-30] MEDS: DONEPEZIL 5 MG TABLET PO SCH (09:31)
[2023-08-30] MEDS: IV 1/2NS 1000 ML 1,000 ML IV PRN (15:16)
[2023-08-30 16:00] VITALS: BP 141/73; TEMP 98.1; O2SAT 98
[2023-08-30] MEDS: LOPERAMIDE HCL (2 MG CAP) 2 MG CAPSULE PO PRN (17:19)
[2023-08-30 20:00] VITALS: BP 108/67; TEMP 98.2; O2SAT 99
[2023-08-30] MEDS: QUETIAPINE FUMARATE 25 MG TABLET PO SCH (22:46)
[2023-08-31] MEDS: CHLORDIAZEPOXIDE HCL 25 MG CAPSULE PO SCH ×3 (00:54→11:30)
[2023-08-31] MEDS: IV 1/2NS 1000 ML 1,000 ML IV PRN (05:32)
[2023-08-31 07:30] VITALS: BP 127/74; TEMP 98.4; O2SAT 96
[2023-08-31] MEDS: GABAPENTIN 100 MG CAPSULE PO SCH (08:51)
[2023-08-31] MEDS: ATENOLOL 25 MG TABLET PO SCH (08:51)
[2023-08-31 08:52] VITALS: BP 127/74
[2023-08-31] MEDS: DONEPEZIL 5 MG TABLET PO SCH (08:52)
[2023-08-31] MEDS: MEMANTINE HCL 5 MG TABLET PO SCH (08:52)
[2023-08-31] MEDS: AMLODIPINE BESYLATE 5 MG TABLET PO SCH (08:52)
[2023-08-31] MEDS: FOLIC ACID 1 MG TABLET PO SCH (08:52)
[2023-08-31] MEDS: ATORVASTATIN 40 MG TABLET PO SCH (08:52)
[2023-08-31] MEDS: SERTRALINE HCL 50 MG TABLET PO SCH (08:52)
[2023-08-31] MEDS: THIAMINE HCL 100 MG TABLET PO SCH (08:52)
[2023-08-31] MEDS: TICAGRELOR 60 MG PO SCH (08:55)
[2023-08-31] MEDS: LOPERAMIDE HCL (2 MG CAP) 2 MG CAPSULE PO PRN (09:03)
== END 2023-08-31 13:45 | DRG 896 ==
LOC: ER 12:45 → TELE 20:30 → MED 08-30 12:19
PROVIDERS: ADMIT Internal Medicine
DX: F10.239 Alcohol dependence with withdrawal, unspecified (principal); G93.41 Metabolic encephalopathy; W19.XXXA Unspecified fall, initial encounter; I10 Essential (primary) hypertension; D69.6 Thrombocytopenia, unspecified; D63.8 Anemia in other chronic diseases classified elsewhere; Z20.822 Contact with and (suspected) exposure to COVID-19; E78.00 Pure hypercholesterolemia, unspecified; Z79.02 Long term (current) use of antithrombotics/antiplatelets; Z79.899 Other long term (current) drug therapy; R29.6 Repeated falls; R53.1 Weakness; F32.A Depression, unspecified; G31.84 Mild cognitive impairment of uncertain or unknown etiology; R26.9 Unspecified abnormalities of gait and mobility; Y90.0 Blood alcohol level of less than 20 mg/100 ml
CPT/HCPCS: 36415; 70450-TC; 71045-TC; 71260-TC; 72125-TC; 80048-TC; 80053-TC; 80076-TC; 81001; 82140-TC; 82607-TC; 83735-TC; 83921; 84100-TC; 84439-TC; 84443-TC; 84484-TC; 85025-TC; 97112-TC; 97116-TC; 97530-TC; A4223; G0378; G0480; J2060; J2270; J3411; J3490; J7030; J7050; J7060; Q9967